=== PATIENT | male | born 1970 | race African-American/Black ===

== ENCOUNTER 2016-06-28 04:15 | Emergency (ER) | payer OTHER ==
[~2016-06-28 04:15] MED LIST: *UNABLE1; ACET500CAP PO; ALKA SELTZER P PO; AMLODIPINE PO; ASAB PO; BEN25 PO; CENTRUM PO; CHOLESTEROL MED PO; CORICIDIN HBP PO; FORTAMET1000 MG PO; FORTAMET500 MG PO; GLUCOTRO10 PO; GLUMETZA500 MG PO; HALF81 PO; HCTZ PO; HCTZ25B PO; HUMULIN R1 ML SC; HYDROCHLOROTHIAZIDE PO; INSNOVN SC; LIPITOR20 PO; LIPITOR40 PO; LISINOPRIL PO; METFORMIN 1000MG PO; NAP500 PO; NAPROXEN PO; NORV10 PO; OMEPRAZOLE PO; OXYCODONE PO; P5 PO; PRILO PO; PRIN20 PO; PROAIR HFA INH; REM15 PO; ULTRAM50 PO; ZESTRIL20 MG PO; ZOFRAN4 PO
[2016-06-28 04:23] LABS: BASOPHILS 0.5 %; BASOPHILS ABSOLUTE 0.03 10/3/uL (0.0-0.16); EOSINOPHILS 0.5 %; EOSINOPHILS ABSOLUTE 0.03 10/3/uL (0.0-0.53); ER CBC TAT 0 Hrs 07 Mins; HEMOGLOBIN 16.8 g/dL (13.6-17.8); IMMATURE GRANULOCYTES 0.2 %; IMMATURE GRANULOCYTES ABSOLUTE 0.01 10/3/uL (0.0-0.11); LYMPHOCYTES 44.6 %; LYMPHOCYTES ABSOLUTE 2.72 10/3/uL (0.67-4.30); MEAN CORPUS HGB CONC 33.9 g/dL (32.0-36.0); MEAN CORPUSCULAR HEMOGLOB 26.6 pg (26.0-34.0); MEAN CORPUSCULAR VOLUME 78.6 fL (80-100); MEAN PLATELET VOLUME 9.4 fL (9.2-13.0); MONOCYTES 6.6 %; NEUTROPHILS 47.6 %; NEUTROPHILS ABSOLUTE 2.91 10/3/uL (2.02-8.40); PLATELET COUNT 252 10/3/uL (150-400); RBC DISTRIBUTION WIDTH 13.6 % (12.0-16.0); RED CELL COUNT 6.31 10/6/uL (4.7-6.1); WHITE BLOOD CELLS 6.1 10/3/uL (4.5-10.5)
[2016-06-28 04:25] LABS: HEMATOCRIT 49.6 % (40.0-51.0); MANUAL DIFF NO %
[2016-06-28 04:41] LABS: CALCIUM, SERUM 9.3 MG/DL (8.5-10.4); CO2 (CARBON DIOXIDE) 28 MMOL/L (24-34); GFR AFRICAN AMERICAN 77 ML/MIN (>=60); GFR NON AFRICAN AMERICAN 66 ML/MIN (>=60); POTASSIUM, SERUM 4.1 MMOL/L (3.5-5.3)
[2016-06-28 04:44] LABS: BUN (BLOOD UREA NITROGEN) 18 MG/DL (6-23); CHLORIDE, SERUM 86 MMOL/L (96-112); GLUCOSE, SERUM 598 MG/DL (60-99); SODIUM, SERUM 130 MMOL/L (135-148)
[2016-06-28 05:19] LABS: ACETONE SMALL
[2016-06-28 05:26] LABS: ASCORBIC ACID (UR NOT ORDER) NEG (NEG); BILIRUBIN, URINE NEGATIVE (NEG); ER URINALYSIS TAT 0 Hrs 00 Mins; KETONE, URINE 20 MG/DL (NEG); LEUKOCYTE ESTERASE(NOT OR NEG (NEG); NITRITE (URINE) NEG (NEG); WBC (NOT ORDERED) (RFLEX) 3 (0-5)
[2016-06-28 07:20] LABS: BUN (BLOOD UREA NITROGEN) 16 MG/DL (6-23); CO2 (CARBON DIOXIDE) 30 MMOL/L (24-34); CREATININE 1.15 MG/DL (0.70-1.30); GFR AFRICAN AMERICAN 89 ML/MIN (>=60); GFR NON AFRICAN AMERICAN 77 ML/MIN (>=60); POTASSIUM, SERUM 3.4 MMOL/L (3.5-5.3)
[2016-06-28 07:22] LABS: CALCIUM, SERUM 7.7 MG/DL (8.5-10.4); CHLORIDE, SERUM 97 MMOL/L (96-112); GLUCOSE, SERUM 307 MG/DL (60-99); SODIUM, SERUM 138 MMOL/L (135-148)
[2016-06-28 08:22] LABS: ACETONE SMALL
== END 2016-06-28 08:42 | disposition home or self-care (01) ==
LOC: ER 04:15
PROVIDERS: Nurse Practitioner
DX: J06.9 Acute upper respiratory infection, unspecified (principal); E13.10 Other specified diabetes mellitus with ketoacidosis without coma; R19.7 Diarrhea, unspecified; F17.200 Nicotine dependence, unspecified, uncomplicated; I10 Essential (primary) hypertension; K21.9 Gastro-esophageal reflux disease without esophagitis; F41.9 Anxiety disorder, unspecified; F43.10 Post-traumatic stress disorder, unspecified; Z79.82 Long term (current) use of aspirin; Z79.4 Long term (current) use of insulin; Z79.899 Other long term (current) drug therapy
CPT/HCPCS: 71010; 80048; 81001; 82009; 82962; 83690; 85025; 87070; 87880; 96374; 99285; A9270-GY